=== PATIENT | male | born 1975 | race Caucasian/White ===

== ENCOUNTER 2017-09-24 15:25 | Emergency (ER) | payer OTHER ==
[2017-09-24 15:37] VITALS: BP 110/68
--- NOTE | 2017-09-24 16:04 | UC ---
Randell Crandall Gabriel, scribed for Jade Ko MD on 09/24/17 at 1549 . Lower Extremity/Ankle HPI - HPI Summary HPI Summary: This patient is a 42 year old M presenting to [facility] c/o right foot pain after he stepped on nail two days ago. The patient did not have shoes on and the nail was galvanized so it was not angela. He has cleaned it, covered it with antibacterial cream, and a bandage. The patient rates the pain 3/10 in severity. Patient reports pain worse today than yesterday. mild erythema, no drainage. No odor. Pt states today mild right knee pain but maybe related to gait. Patient denies fever, chills, n/v, and foreign body. Pt states he last tetanus shot was 4 years ago. He is not immunocompromised. Patients medication reviewed this visit. - History of Current Complaint Chief Complaint: UCLowerExtremity Stated Complaint: STEPPED ON NAIL Hx Obtained From: Patient Onset/Duration: Lasting Days - 2, Still Present Severity Initially: Mild Severity Currently: Mild Pain Intensity: 3 Pain Scale Used: 0-10 Numeric Aggravating Factor(s): Ambulation Able to Bear Weight: Yes - Allergies/Home Medications Allergies/Adverse Reactions: Allergies Allergy/AdvReac Type Severity Reaction Status Date / Time BEE STINGS Allergy HIVES, Uncoded 09/24/17 15:37 SWELLINGS GLUTEN Allergy UNSTABLE Uncoded 09/24/17 15:37 MOODS, ALWAYS HUNGRY, CRAMPS Home Medications: Home Medications Ibuprofen TAB* [Motrin TAB* 400 MG] 400 mg PO Q6HR PRN 09/24/17 [History Confirmed 09/24/17] buPROPion TAB* [Wellbutrin TAB*] 300 mg PO DAILY 09/24/17 [History Confirmed 01/04] PMH/Surg Hx/FS Hx/Imm Hx Previously Healthy: Yes Other History Of: Negative For: Hepatitis C - Surgical History Surgical History: Yes Surgery Procedure, Year, and Place: 1993 PREVIOUS ANKLE SURGERY [place] METAL, [place]. 1983 [place] RIGHT FEMUR FRACTURE[place]. RIGHT HAND POINTER FINGER TENDON REPAIRED 2013 - Family History Known Family History: Positive: Diabetes - Social History Occupation: Employed Full-time Lives: With Family Alcohol Use: None Substance Use Type: None Smoking Status (MU): Never Smoked Tobacco - Immunization History Most Recent Tetanus Shot: 2013 Review of Systems Constitutional: Negative Skin: Other - foot swelling, and erythema Musculoskeletal: Other: - right foot and knee pain Is Patient Immunocompromised?: No All Other Systems Reviewed And Are Negative: Yes Physical Exam Triage Information Reviewed: Yes Vital Signs: Initial Vital Signs Temp 98.9 F 09/24/17 15:30 Pulse 78 09/24/17 15:30 Resp 18 09/24/17 15:30 BP 110/68 09/24/17 15:30 Pulse Ox 99 09/24/17 15:30 Vital Signs Reviewed: Yes Eyes: Positive: Conjunctiva Clear ENT: Positive: Hearing grossly normal Neck: Positive: Supple Cardiovascular: Positive: Other: - 2+ DP, PT CBT < 2 sec all digits Musculoskeletal: Positive: Other: - + flex/ext knee + flex/ext ankle + great toe ext/flexion No pain dorsum foot Pt with mild discomfort in area of puncture on sole Neurological Exam: Normal Neurological: Positive: Alert, Muscle Tone Normal Psychological Exam: Normal Skin: Positive: Other - pt with 3mm puncture/abraison sole of right foot medial aspect of midfoot - mild erythema. no warmth, crepitus, fluctuance, edema, ecchymosis, no red streaking. No drainage, odor with palpation of wound Diagnostics - Radiology Foot Xray Radiology Interpretation Completed By: Radiologist - Soft tissue edema and probable mild subcutaneous emphysema at the medial plantar aspect of the forefoot. No conspicuous retained foreign body evident. Dr. Ko has reviewed this report. Re-Evaluation - Re-Evaluation First Eval Re-Evaluation Time: 16:32 Change: Unchanged Comment: reviewed imaging with pt. in agreement with plan for ortho f/u - will call 1-2 days. Clinda. crutches. wound care. pt given bucket for soaking. strict return precautions discussed Lower Extremity Course/Dx - Course Course Of Treatment: pt with puncture wound to right foot - bare feet. Will check imaging. epsom salt soaks, wound care. tdap utd per pt. Clinda - was in barefeet -concern for staph. re-check 36-48 hours. Strict return precautions discussed - Differential Dx/Diagnosis Provider Diagnoses: puncture wound. minimal cellulitis - Physician Notifications Discussed Patient Care With: Brandon Yanes - agreement with outlined plan, aware of minimal subcut air, will see in f/u in office Time Discussed With Above Provider: 16:28 Instructed by Provider To: Other - We discussed patient care with Dr. Yanes and he agrees with the course of treatment. He also agreed to follow up with the patient in his office. Discharge - Sign-Out/Discharge Documenting (check all that apply): Discharge/Admit/Transfer - Discharge Plan Condition: Stable Disposition: HOME Prescriptions: Clindamycin Cap(NF) [Clindamycin Cap 300 mg Cap(NF)] 300 mg PO TID #30 cap Patient Education Materials: Puncture Wound (ED) Referrals: Brandon Yanes MD [Medical Doctor] - (Please call Dr. Yaens in 1-2 days.) Additional Instructions: - soak your foot in Epsom salt water bath for 15 minutes, 2-3 times a day. After soaking, completely dry your wound, cover with antibiotics ointment and bandage (neosporin, polysporin) - take antibiotics as prescribed until gone - Okay to alternate ibuprofen (advil, motrin) 600mg and tylenol every 3 hours for pain. Take with food. Do NOT take for more than 4-5 days. - Use crutches if you are walking with a limp to prevent strain injury to your back or other leg - monitor your wound closely - if your reddness gets worse, pain gets worse, fever, drainage, or ANY other concerns it is recommended you go directly to the emergency department for further evaluation - Contact Dr. Yanes, orthopedic provider, to schedule a follow-up appointment this week - he is expecting you. Contact Dr. Yanes or go directly to the emergency department with any questions or concerns - Billing Disposition and Condition Condition: STABLE Disposition: HOME The documentation as recorded by the Randell danielle Gabriel accurately reflects the service I personally performed and the decisions made by , Jade Ko MD.
--- NOTE | 2017-09-24 16:17 | RAD ---
Indication: Mild edema; stepped on a nail 2 days ago Comparison: January 17, 2012 RIGHT ankle radiographs. Technique: AP, lateral, and oblique views RIGHT foot. Report: Metallic marker along the plantar surface of the foot at level of the base of the first metatarsal indicating the site of clinical concern. Surrounding soft tissue edema and potential minimal subcutaneous emphysema. No conspicuous foreign body evident. Negative for fracture or malalignment. Os trigonum accessory ossicle noted. 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 IMPRESSION: Soft tissue edema and probable mild subcutaneous emphysema at the medial plantar aspect of the forefoot. No conspicuous retained foreign body evident.
== END 2017-09-24 16:40 | disposition home or self-care (01) ==
LOC: UCEAST 15:25
DX: S91.331A Puncture wound without foreign body, right foot, initial encounter (principal); L03.115 Cellulitis of right lower limb; W45.0XXA Nail entering through skin, initial encounter; Y93.9 Activity, unspecified; Y92.9 Unspecified place or not applicable; M25.561 Pain in right knee
CPT/HCPCS: 99212; G0463